=== PATIENT | male | born 1985 | race Caucasian/White ===

== ENCOUNTER 2016-06-23 11:17 | Inpatient (IN) | payer SELFPAY ==
[~2016-06-23] VITALS: Ht 185.4 cm; Wt 72.5 kg
[~2016-06-23 11:17] MED LIST: Z.0.NO CURRENT MEDS
[2016-06-23 11:19] VITALS: BP 135/93; PULSE 76; RESP 20; TEMP 97.8; O2SAT 98
[2016-06-23] MEDS ORDERED: PROPARACAINE HCL 0.5% OPHT SOLN 15 ML BTL EACH EYE ONE (11:45)
[2016-06-23] MEDS ORDERED: AZITHROMYCIN 250 MG TAB PO ONE (12:00)
[2016-06-23] MEDS ORDERED: cefTRIAXone INJ 1,000 MG in SODIUM CHLORIDE 0.9% INJ 100 ML IV ONE (12:00)
[2016-06-23] MEDS ORDERED: SODIUM CHLOR 0.9% 1000 ML INJ 1,000 ML IV ONE (12:15)
--- NOTE | 2016-06-23 12:16 | PD ---
HPI Chief Complaint: Eye Problems/Injury Time Seen by Provider: 12:16 Travel History International Travel<30 days: No Contact w/Intl Traveler<30days: No Traveled to known affect area: No History of Present Illness HPI Patient is a 30-year-old homeless male with a history of heroin IVDA presenting with left eye pain and swelling. He states has been present for 2 days. Large amounts of watery and yellow discharge. He states that he has significant photophobia and some headache and pain behind the eye. He cannot see out of the eye due to the amount of swelling and discharge and blurriness. He states he does have some itching and redness in the right eye to begin this morning. He states that for 3-4 days he has been having yellow discharge from his penis and burning when being. He denies any pain in the scrotum, perineum or rectum. Denies any penile lesions. He is only had unprotected intercourse with one female partner in the last several months. He denies fever and chills. He denies lymphadenopathy. He denies history of diabetes and immunocompromised states. PFSH Past Medical History Blood Disorders: No Endocrine: No Headaches: No Neurologic: No Psychiatric: Yes Reproductive: No Respiratory: No Seizures: No Past Surgical History Abdominal Surgery: No Cardiac Surgery: No Thoracic Surgery: No Social History Alcohol Use: No Tobacco Use: Yes (1/2PD) Substance Use: Yes Allergies-Medications (Allergen,Severity, Reaction): Coded Allergies: No Known Allergies (Verified , 11/25/12) Reported Meds & Prescriptions Reported Meds & Active Scripts Active No Active Prescriptions or Reported Medications Review of Systems Except as stated in HPI: all other systems reviewed are Neg Physical Exam Narrative GENERAL: Well-developed and well-nourished adult male in no acute distress. SKIN: "Track diallo "in the left antecubital fossa. Warm and dry. Good turgor without tenting. HEAD: Normocephalic and atraumatic. EYES: Left eye has significant erythema and chemosis of the conjunctiva with large amounts of purulent drainage. Left cornea appears unremarkable. Large amount of edema of the left upper eyelid with cellulitis present. No proptosis of the left eye. PERRL bilaterally, 4mm. EOMI bilaterally but with significant discomfort in the left eye. Right eye has only minimal conjunctival injection present without any drainage, proptosis. Lids without edema or erythema. ENT: Buccal mucosa pink and moist. Oropharynx free of erythema, tonsillar hypertrophy, masses, swelling, asymmetry and exudates. Uvula midline and airway patent. NECK: Supple, no meningeal sign. Trachea midline, no JVD. CARDIOVASCULAR: Regular rate and rhythm without murmurs, rubs, clicks or gallops. Radial and posterior tibial pulses 2+ bilaterally. No pedal edema. RESPIRATORY: Clear to auscultation bilaterally with symmetrical rise and fall, no distress or use of accessory muscles. GASTROINTESTINAL: Non-tender, non-distended. Normal bowel sounds all 4 quadrants. No masses or organomegaly present. : Urethral meatus patent. Small amount of yellow discharge from the meatus. No penile lesions or edema or pain with palpation. Scrotum is unremarkable grossly. No tenderness with palpation of the scrotum and testicles. No masses. LYMPH: Multiple small lymph nodes that are mobile and nontender posterior cervical chains bilaterally. No other cervical or facial lymphadenopathy. There is some left inguinal lymphadenopathy, largest is 2 cm they're mobile and slightly tender. MUSCULOSKELETAL: No gait disturbances. Patient freely moving all four extremities spontaneously. Extremities without clubbing, cyanosis, or edema. No obvious deformities. NEUROLOGIC: CN II-XII grossly intact. Awake and alert. Motor grossly within normal limits. Normal speech. PSYCHIATRIC: Appropriate mood and affect; insight and judgment normal. Data Data Last Documented VS Vital Signs Date Time Temp Pulse Resp B/P Pulse Ox O2 Delivery O2 Flow Rate FiO2 06/23/16 11:19 97.8 76 20 135/93 98 Room Air Orders Proparacaine 0.5% Opth Soln (Alcaine 0.5 (06/23/16 11:45) Complete Blood Count With Diff (06/23/16 12:00) Comprehensive Metabolic Panel (06/23/16 12:00) Urinalysis - C+S If Indicated (06/23/16 12:00) Gc And Chlamydia Pcr (06/23/16 12:00) Blood Culture (06/23/16 12:00) Iv Access Insert/Monitor (06/23/16 12:00) Azithromycin (Zithromax) (06/23/16 12:00) Ceftriaxone Inj (Rocephin Inj) (06/23/16 12:00) Wound Culture And Gram Stain (06/23/16 12:00) Sodium Chlor 0.9% 1000 Ml Inj (Ns 1000 M (06/23/16 12:15) Ct Brain W/O Iv Contrast(Rout) (06/23/16 ) Ct Facial Bones W Iv Contrast (06/23/16 ) Urine Culture (06/23/16 12:15) Gc And Chlamydia Pcr (06/23/16 13:02) Doxycycline (Vibramycin) (06/23/16 13:15) Iohexol 350 Inj (Omnipaque 350 Inj) (06/23/16 13:36) Admit Order (Ed Use Only) (06/23/16 14:32) Admit To Inpatient (06/23/16 ) Inpatient Certification (06/23/16 ) Diet Regular Basic (06/23/16 Dinner) Activity Oob Ad Diane (06/23/16 14:32) Vital Signs (Adult) VINCE.Q4H (06/23/16 14:32) Labs Laboratory Tests Test 06/23/16 06/23/16 06/23/16 12:15 12:20 13:20 Urine Color YELLOW Urine Turbidity CLOUDY Urine pH 5.5 Urine Specific [place] 1.028 Urine Protein 30 mg/dL Urine Glucose (UA) NEG mg/dL Urine Ketones NEG mg/dL Urine Occult Blood MOD Urine Nitrite NEG Urine Bilirubin NEG Urine Urobilinogen LESS THAN 2.0 MG/DL Urine Leukocyte Esterase LARGE Urine RBC /hpf Urine WBC /hpf Urine WBC Clumps FEW Urine Bacteria RARE /hpf Microscopic Urinalysis Comment CULTURE INDICATED Chlamydia trachomatis DNA NOT DETECTED NOT DETECTED (PCR) Neisseria gonorrhoeae DNA DETECTED DETECTED (PCR) White Blood Count 10.2 TH/MM3 Red Blood Count 4.91 MIL/MM3 Hemoglobin 14.1 GM/DL Hematocrit 42.2 % Mean Corpuscular Volume 85.9 FL Mean Corpuscular Hemoglobin 28.8 PG Mean Corpuscular Hemoglobin 33.5 % Concent Red Cell Distribution Width 13.7 % Platelet Count 247 TH/MM3 Mean Platelet Volume 7.1 FL Neutrophils (%) (Auto) 81.9 % Lymphocytes (%) (Auto) 11.0 % Monocytes (%) (Auto) 5.9 % Eosinophils (%) (Auto) 1.0 % Basophils (%) (Auto) 0.2 % Neutrophils # (Auto) 8.3 TH/MM3 Lymphocytes # (Auto) 1.1 TH/MM3 Monocytes # (Auto) 0.6 TH/MM3 Eosinophils # (Auto) 0.1 TH/MM3 Basophils # (Auto) 0.0 TH/MM3 CBC Comment DIFF FINAL Differential Comment Sodium Level 143 MEQ/L Potassium Level 4.0 MEQ/L Chloride Level 109 MEQ/L Carbon Dioxide Level 27.8 MEQ/L Anion Gap 6 MEQ/L Blood Urea Nitrogen 13 MG/DL Creatinine 0.90 MG/DL Estimat Glomerular Filtration 100 ML/MIN Rate Random Glucose 92 MG/DL Calcium Level 8.6 MG/DL Total Bilirubin 0.1 MG/DL Aspartate Amino Transf 20 U/L (AST/SGOT) Alanine Aminotransferase 33 U/L (ALT/SGPT) Alkaline Phosphatase 68 U/L Total Protein 7.1 GM/DL Albumin 3.3 GM/DL MDM Medical Decision Making Medical Screen Exam Complete: Yes Emergency Medical Condition: Yes Interpretation(s) Last [address] 06/23/16 0000 Signed Impressions: Service Date/Time: Thursday, June 23, 2016 13:15 - CONCLUSION: 1. Preseptal soft tissue swelling bilaterally, left greater than right, consistent with preseptal cellulitis. No retroconal abnormality is present. There is air on the left in the region soft tissue swelling and it is not clear this is within the soft tissues or beneath the lid. 2. Lucency around the root of the right mandibular lateral incisor indicating dental disease. Berry Saenz MD Head CT 06/23/16 0000 Signed Impressions: Service Date/Time: Thursday, June 23, 2016 13:10 - CONCLUSION: 1. No acute intracranial abnormality is identified. 2. Possible left preseptal soft tissue swelling. The left lobe demonstrates no abnormality. Berry Saenz MD Laboratory Tests Test 06/23/16 06/23/16 12:15 12:20 Urine Color YELLOW (YELLW/STRAW) Urine Turbidity CLOUDY (CLEAR) Urine pH 5.5 (5.0-8.5) Urine Specific [place] 1.028 (1.002-1.035) Urine Protein 30 mg/dL (NEG-TRACE) Urine Glucose (UA) NEG mg/dL (NEG) Urine Ketones NEG mg/dL (NEG) Urine Occult Blood MOD (NEG) Urine Nitrite NEG (NEG) Urine Bilirubin NEG (NEG) Urine Urobilinogen LESS THAN 2.0 MG/DL (LESS THAN 2.0) Urine Leukocyte Esterase LARGE (NEG) Urine RBC /hpf (0-3) Urine WBC /hpf (0-5) Urine WBC Clumps FEW (NONE) Urine Bacteria RARE /hpf (NONE) Microscopic Urinalysis Comment CULTURE INDICATED Chlamydia trachomatis DNA NOT DETECTED (PCR) (NOT DETECT) Neisseria gonorrhoeae DNA DETECTED (NOT (PCR) DETECT) White Blood Count 10.2 TH/MM3 (4.0-11.0) Red Blood Count 4.91 MIL/MM3 (4.50-5.90) Hemoglobin 14.1 GM/DL (13.0-17.0) Hematocrit 42.2 % (39.0-51.0) Mean Corpuscular Volume 85.9 FL (80.0-100.0) Mean Corpuscular Hemoglobin 28.8 PG (27.0-34.0) Mean Corpuscular Hemoglobin 33.5 % Concent (32.0-36.0) Red Cell Distribution Width 13.7 % (11.6-17.2) Platelet Count 247 TH/MM3 (150-450) Mean Platelet Volume 7.1 FL (7.0-11.0) Neutrophils (%) (Auto) 81.9 % (16.0-70.0) Lymphocytes (%) (Auto) 11.0 % (9.0-44.0) Monocytes (%) (Auto) 5.9 % (0.0-8.0) Eosinophils (%) (Auto) 1.0 % (0.0-4.0) Basophils (%) (Auto) 0.2 % (0.0-2.0) Neutrophils # (Auto) 8.3 TH/MM3 (1.8-7.7) Lymphocytes # (Auto) 1.1 TH/MM3 (1.0-4.8) Monocytes # (Auto) 0.6 TH/MM3 (0-0.9) Eosinophils # (Auto) 0.1 TH/MM3 (0-0.4) Basophils # (Auto) 0.0 TH/MM3 (0-0.2) CBC Comment DIFF FINAL Differential Comment Sodium Level 143 MEQ/L (136-145) Potassium Level 4.0 MEQ/L (3.5-5.1) Chloride Level 109 MEQ/L (98-107) Carbon Dioxide Level 27.8 MEQ/L (21.0-32.0) Anion Gap 6 MEQ/L (5-15) Blood Urea Nitrogen 13 MG/DL (7-18) Creatinine 0.90 MG/DL (0.60-1.30) Estimat Glomerular Filtration 100 ML/MIN Rate (>89) Random Glucose 92 MG/DL (74-106) Calcium Level 8.6 MG/DL (8.5-10.1) Total Bilirubin 0.1 MG/DL (0.2-1.0) Aspartate Amino Transf 20 U/L (15-37) (AST/SGOT) Alanine Aminotransferase 33 U/L (12-78) (ALT/SGPT) Alkaline Phosphatase 68 U/L (45-117) Total Protein 7.1 GM/DL (6.4-8.2) Albumin 3.3 GM/DL (3.4-5.0) Differential Diagnosis Gonococcal conjunctivitis versus chlamydia versus gonorrhea versus orbital cellulitis Narrative Course Stefanie is a 30-year-old afebrile nontoxic appearing IV drug user who is currently homeless presenting with urethritis and discharge for 3-4 days has begun having eye symptoms suggestive of gonococcal conjunctivitis. Significant amount of discharge with significant injection and chemosis. Lids are erythematous and edematous. No proptosis. The patient is having some pain behind the eye. He has some minor irritation of the conjunctiva of the right eye but no marcelino discharge. I spoke with Dr. Wilson evaluated the patient and agrees this is the most likely etiology. Concern is as patient will likely be lost to follow-up and has history of IVDA he is at risk for significant complication. Further as it bothers his right eye as well there is concern he will not be functional if he is unable to see and could have permanent vision loss. Patient was given ceftriaxone, azithromycin and doxycycline. Ordered labs, urine GNC as well as a DNA probe GNC. We also sent a wound culture of the left eye. I spoke with Dr. Cline, ophthalmology, who stated that no additional emergent treatment is warranted at this time. He agrees the patient should be admitted and he will follow-up in consult. Urine chlamydia and gonorrhea was positive for gonorrhea. The eye swab is still pending. Patient does not have a leukocytosis and his labs are otherwise unremarkable. CT scan shows preseptal soft tissue swelling bilaterally, left greater than right consistent with cellulitis. No retroconal abdomen mildly is seen. There is small amount of air in the soft tissue region and is not clear if this is between the lid and the eyeball or otherwise. Report was given to Dr. Larios who accepted the admission. Later a phone call was received from Dr. Flower requesting that the discharge be irriated with sterile eye wash every 2-[address] hours to prevent complication[address] Dr. Larios was preset and seeing the patient at that time so I relayed this to here to place the orders, which she stated she would do. Diagnosis Primary Impression: Gonococcal conjunctivitis of left eye Additional Impressions: Gonococcal urethritis Preseptal cellulitis Admitting Information Admitting Physician Requests: Admit Scripts No Active Prescriptions or Reported Meds Condition: Stable Berry Kennedy III Jun 23, 2016 12:16
[2016-06-23 12:33] LABS: AUTOMATED NEUTROPHIL # 8.3 TH/MM3 (1.8-7.7); BASOPHIL % 0.2 % (0.0-2.0); EOSINOPHIL # 0.1 TH/MM3 (0-0.4); HEMATOCRIT 42.2 % (39.0-51.0); HEMO FLAGS DIFF FINAL; LYMPHOCYTE # 1.1 TH/MM3 (1.0-4.8); MEAN CELL VOLUME 85.9 FL (80.0-100.0); MEAN CORPUSCULAR HEMOGLOBIN 28.8 PG (27.0-34.0); MEAN CORPUSCULAR HGB CONC 33.5 % (32.0-36.0); MONO % 5.9 % (0.0-8.0); NEUT % 81.9 % (16.0-70.0); PLATELET COUNT 247 TH/MM3 (150-450); RED BLOOD COUNT 4.91 MIL/MM3 (4.50-5.90); RED CELL DISTRIBUTION WIDTH 13.7 % (11.6-17.2); WHITE BLOOD COUNT 10.2 TH/MM3 (4.0-11.0)
[2016-06-23 12:41] LABS: BACTERIA, URINE RARE /hpf; BLOOD, URINE MOD (NEG); GLUCOSE,URINE NEG (NEG); KETONE, URINE NEG (NEG); NITRITE,URINE NEG (NEG); PH, URINE 5.5 (5.0-8.5); URINE COLOR YELLOW (YELLW/STRAW)
[2016-06-23 12:43] LABS: COMMENT (UR) CULTURE INDICATED; CULTURE IF INDICATED CULTURE INDICATED
[2016-06-23 12:56] LABS: ALT (GPT) 33 U/L (12-78); ANION GAP 6 MEQ/L (5-15); AST (GOT) 20 U/L (15-37); BICARBONATE 27.8 MEQ/L (21.0-32.0); BLOOD UREA NITROGEN 13 MG/DL (7-18); CHLORIDE 109 MEQ/L (98-107); GLOMERULAR FILTRATION RATE 100 ML/MIN (>89); SODIUM (NA) 143 MEQ/L (136-145)
[2016-06-23 12:58] LABS: ALKALINE PHOSPHATASE 68 U/L (45-117); TOTAL BILIRUBIN ADULT 0.1 MG/DL (0.2-1.0)
[2016-06-23] MEDS ORDERED: DOXYCYCLINE HYCLATE 100 MG CAP PO ONE (13:15)
--- NOTE | 2016-06-23 13:31 | RADRPT ---
EXAM DATE/TIME: 06/23/2016 13:10 [facility] COMPARISON: No previous studies available for comparison. INDICATIONS : Cephalgia. RADIATION DOSE: 56.35 CTDIvol (mGy) MEDICAL HISTORY : None SURGICAL HISTORY : None. ENCOUNTER: Initial ACUITY: 3 days PAIN SCALE: 10/10 LOCATION: Left eye. TECHNIQUE: Multiple contiguous axial images were obtained of the head. Using automated exposure control and adj ustment of the mA and/or kV according to patient size, radiation dose was kept as low as reasonably a chievable to obtain optimal diagnostic quality images. FINDINGS: CEREBRUM: The ventricles are normal for age. No evidence of midline shift, mass lesion, hemorrhage or acute in farction. No extra-axial fluid collections are seen. POSTERIOR FOSSA: The cerebellum and brainstem are intact. The 4th ventricle is midline. The cerebellopontine angle i s unremarkable. EXTRACRANIAL: There is possible left preseptal soft tissue swelling. Left globe demonstrates no abnormality. SKULL: The calvaria is intact. No evidence of skull fracture. CONCLUSION: 1. No acute intracranial abnormality is identified. 2. Possible left preseptal soft tissue swelling. The left lobe demonstrates no abnormality. Berry Saenz MD on June 23, 2016 at 13:28 Board Certified Radiologist. This report was verified electronically.
[2016-06-23] MEDS ORDERED: IOHEXOL 350 MG/ML 10 ML VIAL (for RAD DIAG) IV ONE (13:36)
--- NOTE | 2016-06-23 13:53 | RADRPT ---
EXAM DATE/TIME: 06/23/2016 13:15 [facility] COMPARISON: No previous studies available for comparison. INDICATIONS : Left eye swelling and pain. IV CONTRAST: 100 cc Omnipaque 350 (iohexol) IV RADIATION DOSE: 36.62 CTDIvol (mGy) MEDICAL HISTORY : None SURGICAL HISTORY : None. ENCOUNTER: Initial ACUITY: 3 days PAIN SCALE: 10/10 LOCATION: Left eye. TECHNIQUE: Volumetric scanning of the facial bones was performed. Using automated exposure control and adjustme nt of the mA and/or kV according to patient size, radiation dose was kept as low as reasonably achiev able to obtain optimal diagnostic quality images. FINDINGS: There is preseptal soft tissue thickening and mild subcutaneous edema bilaterally, left greater than right. There is air in the area soft tissue swelling in the left that may be beneath the lid or withi n the soft tissues. The globes have a normal appearance and lenses are normally located. Extraocular muscles and retroconal structures demonstrate no abnormality. The paranasal sinuses and mastoid air c ells are clear. Visualized intracranial structures demonstrate no acute finding. There is lucency josue und the root of the right lateral incisor and the mandible. CONCLUSION: 1. Preseptal soft tissue swelling bilaterally, left greater than right, consistent with preseptal mahin lulitis. No retroconal abnormality is present. There is air on the left in the region soft tissue swe lling and it is not clear this is within the soft tissues or beneath the lid. 2. Lucency around the root of the right mandibular lateral incisor indicating dental disease. Berry Saenz MD on June 23, 2016 at 13:47 Board Certified Radiologist. This report was verified electronically.
[2016-06-23 14:53] VITALS: BP 128/86; PULSE 80; RESP 15; O2SAT 98
[2016-06-23 15:19] LABS: CHLAMYDIA PCR NOT DETECTED (NOT DETECT); NEISSERIA PCR DETECTED (NOT DETECT)
[2016-06-23 17:07] LABS: CHLAMYDIA PCR NOT DETECTED (NOT DETECT); NEISSERIA PCR DETECTED (NOT DETECT)
--- NOTE | 2016-06-23 18:51 | HHI.HP ---
[facility] Primary Care Physician No Primary Care Physician Admission Diagnosis GONOCCOCAL CONJUNCTIVITIS, PRESEPTAL CELLULITIS Diagnoses: Chief Complaint: Left periorbital pain and swelling Travel History International Travel<30 Days: No Contact w/Intl Traveler <30 Da: No Traveled to Known Affected Are: No History of Present Illness Patient is a 30-year-old male who woke up 3 days ago with left periorbital swelling rapidly progressive with the ring draining yellowish purulent discharge. Patient denies any fever or chills. He denies any headache. He does complain of burning urination with discharge from the penis/urethral for the past 3 days 2. Woke up this morning with increasing eye pain and swelling which prompted consult to ER and admitted for further evaluation. Denies any joint pains Patient is sexually active uses unprotected sex. States he was tested for HIV 8 months ago and was reportedly negative. Patient denies any history of previous sexually transmitted diseases. He admits to history of IV drug use with powder Dilaudid. Last use was 2 days ago injected on the left Review of Systems Constitutional: DENIES: Diaphoretic episodes, Fatigue, Fever, Weight gain, Weight loss, Chills, Dizziness, Change in appetite, Night Sweats Endocrine: DENIES: Heat/cold intolerance, Polydipsia, Polyuria, Polyphagia Eyes: DENIES: Blurred vision, Diplopia, Eye inflammation, Eye pain, Vision loss , Photosensitivity, Double Vision Ears, nose, mouth, throat: DENIES: Tinnitus, Hearing loss, Vertigo, Nasal discharge, Oral lesions, Throat pain, Hoarseness, Ear Pain, Running Nose, Epistaxis, Sinus Pain, Toothache, Odynophagia Respiratory: DENIES: Apneas, Cough, Snoring, Wheezing, Hemoptysis, Sputum production, Shortness of breath Cardiovascular: DENIES: Chest pain, Palpitations, Syncope, Dyspnea on Exertion , PND, Lower Extremity Edema, Orthopnea, Claudication Gastrointestinal: DENIES: Abdominal pain, Black stools, Bloody stools, Constipation, Diarrhea, Nausea, Vomiting, Difficulty Swallowing, Anorexia Genitourinary: COMPLAINS OF: Penile Discharge, DENIES: Sexual dysfunction, Urinary frequency, Urinary incontinence, Urgency, Hematuria, Dysuria, Nocturia, Testicular Pain, Testicular Swelling Hematologic/lymphatic: DENIES: Bruising, Lymphadenopathy Immunologic/allergic: DENIES: Eczema, Urticaria Neurologic: DENIES: Abnormal gait, Headache, Localized weakness, Paresthesias, Seizures, Speech Problems, Tremor, Poor Balance Psychiatric: DENIES: Anxiety, Confusion, Mood changes, Depression, Hallucinations, Agitation, Suicidal Ideation, Homicidal Ideation, Delusions Past Family Social History Past Medical History No chronic medical conditions Past Surgical History Left IV Lasix surgery in 2005 Reported Medications None Allergies: Coded Allergies: No Known Allergies (Verified , 11/25/12) Family History Unknown Social History Smokes 1 pack per day Very rare occasional alcohol use History of IV drug use using powdered Dilaudid injected to the left antecubital area last used 2 days ago Physical Exam Vital Signs Vital Signs Date Time Temp Pulse Resp B/P Pulse Ox O2 Delivery O2 Flow Rate FiO2 06/23/16 14:53 80 15 128/86 98 Room Air 06/23/16 11:19 97.8 76 20 135/93 98 Room Air Physical Exam GENERAL: Awake alert oriented 3 SKIN: Middle diallo left antecubital area dry no swelling HEAD: Atraumatic. EYES: OS: Marked left periorbital swelling unable to open eye draining pus. OD- some periorbital swelling, matted lashes, injected conjunctivae ENT: Nose without bleeding, p Airway patent. NECK: Trachea midline. No JVD or lymphadenopathy. Supple, nontender, no meningeal signs. CARDIOVASCULAR: Regular rate and rhythm without murmurs, gallops, or rubs. RESPIRATORY: Clear to auscultation. Breath sounds equal bilaterally. No wheezes , rales, or rhonchi. GASTROINTESTINAL: Abdomen soft, non-tender, nondistended. No hepato-splenomegaly , or palpable masses. No guarding. External genitalia. Circumcised penis, urethra with yellowish purulent discharge MUSCULOSKELETAL: Extremities without clubbing, cyanosis, or edema. No joint tenderness, effusion, or edema noted. No calf tenderness. Negative Homans sign bilaterally No joint swelling NEUROLOGICAL: Awake and alert. No nuchal rigidity Unable to test for extraocular muscle with marked swelling. No facial asymmetry tongue midline moves all extremities equally Laboratory Laboratory Tests Test 06/23/16 06/23/16 06/23/16 12:15 12:20 13:20 Urine Color YELLOW Urine Turbidity CLOUDY Urine pH 5.5 Urine Specific [place] 1.028 Urine Protein 30 Urine Glucose (UA) NEG Urine Ketones NEG Urine Occult Blood MOD Urine Nitrite NEG Urine Bilirubin NEG Urine Urobilinogen LESS THAN 2.0 Urine Leukocyte Esterase LARGE Urine RBC Urine WBC Urine WBC Clumps FEW Urine Bacteria RARE Microscopic Urinalysis Comment CULTURE INDICATED Chlamydia trachomatis DNA NOT DETECTED NOT DETECTED (PCR) Neisseria gonorrhoeae DNA DETECTED DETECTED (PCR) White Blood Count 10.2 Red Blood Count 4.91 Hemoglobin 14.1 Hematocrit 42.2 Mean Corpuscular Volume 85.9 Mean Corpuscular Hemoglobin 28.8 Mean Corpuscular Hemoglobin 33.5 Concent Red Cell Distribution Width 13.7 Platelet Count 247 Mean Platelet Volume 7.1 Neutrophils (%) (Auto) 81.9 Lymphocytes (%) (Auto) 11.0 Monocytes (%) (Auto) 5.9 Eosinophils (%) (Auto) 1.0 Basophils (%) (Auto) 0.2 Neutrophils # (Auto) 8.3 Lymphocytes # (Auto) 1.1 Monocytes # (Auto) 0.6 Eosinophils # (Auto) 0.1 Basophils # (Auto) 0.0 CBC Comment DIFF FINAL Differential Comment Sodium Level 143 Potassium Level 4.0 Chloride Level 109 Carbon Dioxide Level 27.8 Anion Gap 6 Blood Urea Nitrogen 13 Creatinine 0.90 Estimat Glomerular Filtration 100 Rate Random Glucose 92 Calcium Level 8.6 Total Bilirubin 0.1 Aspartate Amino Transf 20 (AST/SGOT) Alanine Aminotransferase 33 (ALT/SGPT) Alkaline Phosphatase 68 Total Protein 7.1 Albumin 3.3 Date/Time Procedure Status Source Growth 06/23/16 12:20 Aerobic Blood Culture Received Blood Peripheral Pending 06/23/16 12:20 Anaerobic Blood Culture Received Blood Peripheral Pending 06/23/16 12:15 Urine Culture Received Urine Clean Catch Pending 06/23/16 12:15 Gram Stain Received Wound Other Pending 06/23/16 12:15 Wound Culture Received Wound Other Pending Result Diagram: 06/23/16 1220 06/23/16 1220 Imaging Last Impressions Maxillofacial CT 06/23/16 0000 Signed Impressions: Service Date/Time: Thursday, June 23, 2016 13:15 - CONCLUSION: 1. Preseptal soft tissue swelling bilaterally, left greater than right, consistent with preseptal cellulitis. No retroconal abnormality is present. There is air on the left in the region soft tissue swelling and it is not clear this is within the soft tissues or beneath the lid. 2. Lucency around the root of the right mandibular lateral incisor indicating dental disease. Berry Saenz MD Head CT 06/23/16 0000 Signed Impressions: Service Date/Time: Thursday, June 23, 2016 13:10 - CONCLUSION: 1. No acute intracranial abnormality is identified. 2. Possible left preseptal soft tissue swelling. The left lobe demonstrates no abnormality. Berry Saenz MD Assessment and Plan Assessment and Plan 30-year-old male with Disseminated Gonococcal infection Gonococcal conjunctivitis with left periorbital cellulitis Gonococcal urethritis received ceftriaxone 1 g IV and zithromax 1 gm dose here in ER continue Ceftriaxone for cellulitis Ophthalmology consulted for further evaluation and management.- Will get ID service involved When necessary pain meds Eye lavage with proparacaine topical eye 2 drops every 3-4 hours.per ophthalmology ecommendations Bilateral bacterial conjuctivitis OS worse than OD History of IV drug abuse/polysubstance abuse Lortab prn for pain Discussed Condition With Patient Physician Certification 2 Midnight Certification Type: Admission for Inpatient Services Order for Inpatient Services The services are ordered in accordance with Medicare regulations or non- Medicare payer requirements, as applicable. In the case of services not specified as inpatient-only, they are appropriately provided as inpatient services in accordance with the 2-midnight benchmark. Estimated LOS (days): 3 days is the estimated time the patient will need to remain in the hospital, assuming treatment plan goals are met and no additional complications. Post-Hospital Plan: Not yet determined Antoinette Larios MD Jun 23, 2016 18:51
[2016-06-23 19:15] VITALS: BP 136/72; PULSE 80; RESP 16; TEMP 98.9; O2SAT 97
[2016-06-23 21:32] VITALS: BP 131/76; TEMP 98.9
[2016-06-23 22:16] VITALS: BP 142/81; PULSE 70; RESP 18; TEMP 98.5; O2SAT 98
--- NOTE | 2016-06-23 22:53 | PD ---
Data Data Last Documented VS Vital Signs Date Time Temp Pulse Resp B/P Pulse Ox O2 Delivery O2 Flow Rate FiO2 06/23/16 11:19 97.8 76 20 135/93 98 Room Air Orders Proparacaine 0.5% Opth Soln (Alcaine 0.5 (06/23/16 11:45) Complete Blood Count With Diff (06/23/16 12:00) Comprehensive Metabolic Panel (06/23/16 12:00) Urinalysis - C+S If Indicated (06/23/16 12:00) Gc And Chlamydia Pcr (06/23/16 12:00) Blood Culture (06/23/16 12:00) Iv Access Insert/Monitor (06/23/16 12:00) Azithromycin (Zithromax) (06/23/16 12:00) Ceftriaxone Inj (Rocephin Inj) (06/23/16 12:00) Wound Culture And Gram Stain (06/23/16 12:00) Sodium Chlor 0.9% 1000 Ml Inj (Ns 1000 M (06/23/16 12:15) Ct Brain W/O Iv Contrast(Rout) (06/23/16 ) Ct Facial Bones W Iv Contrast (06/23/16 ) Urine Culture (06/23/16 12:15) Gc And Chlamydia Pcr (06/23/16 13:02) Doxycycline (Vibramycin) (06/23/16 13:15) Iohexol 350 Inj (Omnipaque 350 Inj) (06/23/16 13:36) Admit Order (Ed Use Only) (06/23/16 14:32) Admit To Inpatient (06/23/16 ) Inpatient Certification (06/23/16 ) Diet Regular Basic (06/23/16 Dinner) Activity Oob Ad Diane (06/23/16 14:32) Vital Signs (Adult) VINCE.Q4H (06/23/16 14:32) Labs Laboratory Tests Test 06/23/16 06/23/16 06/23/16 12:15 12:20 13:20 Urine Color YELLOW Urine Turbidity CLOUDY Urine pH 5.5 Urine Specific [place] 1.028 Urine Protein 30 mg/dL Urine Glucose (UA) NEG mg/dL Urine Ketones NEG mg/dL Urine Occult Blood MOD Urine Nitrite NEG Urine Bilirubin NEG Urine Urobilinogen LESS THAN 2.0 MG/DL Urine Leukocyte Esterase LARGE Urine RBC /hpf Urine WBC /hpf Urine WBC Clumps FEW Urine Bacteria RARE /hpf Microscopic Urinalysis Comment CULTURE INDICATED Chlamydia trachomatis DNA NOT DETECTED NOT DETECTED (PCR) Neisseria gonorrhoeae DNA DETECTED DETECTED (PCR) White Blood Count 10.2 TH/MM3 Red Blood Count 4.91 MIL/MM3 Hemoglobin 14.1 GM/DL Hematocrit 42.2 % Mean Corpuscular Volume 85.9 FL Mean Corpuscular Hemoglobin 28.8 PG Mean Corpuscular Hemoglobin 33.5 % Concent Red Cell Distribution Width 13.7 % Platelet Count 247 TH/MM3 Mean Platelet Volume 7.1 FL Neutrophils (%) (Auto) 81.9 % Lymphocytes (%) (Auto) 11.0 % Monocytes (%) (Auto) 5.9 % Eosinophils (%) (Auto) 1.0 % Basophils (%) (Auto) 0.2 % Neutrophils # (Auto) 8.3 TH/MM3 Lymphocytes # (Auto) 1.1 TH/MM3 Monocytes # (Auto) 0.6 TH/MM3 Eosinophils # (Auto) 0.1 TH/MM3 Basophils # (Auto) 0.0 TH/MM3 CBC Comment DIFF FINAL Differential Comment Sodium Level 143 MEQ/L Potassium Level 4.0 MEQ/L Chloride Level 109 MEQ/L Carbon Dioxide Level 27.8 MEQ/L Anion Gap 6 MEQ/L Blood Urea Nitrogen 13 MG/DL Creatinine 0.90 MG/DL Estimat Glomerular Filtration 100 ML/MIN Rate Random Glucose 92 MG/DL Calcium Level 8.6 MG/DL Total Bilirubin 0.1 MG/DL Aspartate Amino Transf 20 U/L (AST/SGOT) Alanine Aminotransferase 33 U/L (ALT/SGPT) Alkaline Phosphatase 68 U/L Total Protein 7.1 GM/DL Albumin 3.3 GM/DL MDM Supervised Visit with FRANCK: Yes Narrative Course Patient seen and examined by me in addition to Berry SALDAÑA. Agree s/s are highly suggestive of gonoccocal conjunctivitis. Labs sent will be admitted. Diagnosis Primary Impression: Gonococcal conjunctivitis of left eye Additional Impressions: Gonococcal urethritis Preseptal cellulitis Scripts No Active Prescriptions or Reported Meds Condition: Stable Be Wilson MD Jun 23, 2016 22:53
[2016-06-23 23:00] VITALS: BP 149/88; PULSE 55; RESP 15; TEMP 97.3; O2SAT 99
[2016-06-24] VITALS: BP 149/88; PULSE 55; RESP 15; TEMP 97.3; O2SAT 99
[2016-06-24] MEDS: PROPARACAINE HCL 0.5% OPHT SOLN 15 ML BTL LEFT EYE PRN ×2 (03:48→22:00)
[2016-06-24 04:00] VITALS: BP 143/82; PULSE 58; RESP 16; TEMP 96.7; O2SAT 98
[2016-06-24 08:00] VITALS: BP 146/94; PULSE 53; RESP 16; TEMP 98; O2SAT 100
[2016-06-24 12:00] VITALS: BP 144/94; PULSE 48; RESP 14; TEMP 98.4; O2SAT 100
[2016-06-24] MEDS: cefTRIAXone INJ 1,000 MG in SODIUM CHLORIDE 0.9% INJ 100 ML IV SCH (12:31)
--- NOTE | 2016-06-24 12:51 | HHI.PR ---
Subjective Remarks marked improvement in pain and swelling of the left urinary symptoms resolved Objective Vitals Vital Signs Date Time Temp Pulse Resp B/P Pulse Ox O2 Delivery O2 Flow Rate FiO2 06/24/16 12:00 98.4 48 14 144/94 100 06/24/16 08:00 98.0 53 16 146/94 100 06/24/16 04:00 96.7 58 16 143/82 98 06/24/16 00:00 97.3 55 15 149/88 99 06/23/16 23:00 97.3 55 15 149/88 99 06/23/16 22:16 98.5 70 18 142/81 98 06/23/16 21:32 98.9 82 16 131/76 99 06/23/16 19:15 98.9 80 16 136/72 97 Room Air 06/23/16 14:53 80 15 128/86 98 Room Air I/O 06/23/16 06/23/16 06/23/16 06/24/16 06/24/16 06/24/16 07:00 15:00 23:00 07:00 15:00 23:00 Intake Total 240 ml 480 ml 240 ml Balance 240 ml 480 ml 240 ml Intake Oral 240 ml 480 ml 240 ml # Voids 1 2 # Bowel Movements 0 Result Diagram: 06/23/16 1220 06/23/16 1220 Imaging Last Impressions Maxillofacial CT 06/23/16 0000 Signed Impressions: Service Date/Time: Thursday, June 23, 2016 13:15 - CONCLUSION: 1. Preseptal soft tissue swelling bilaterally, left greater than right, consistent with preseptal cellulitis. No retroconal abnormality is present. There is air on the left in the region soft tissue swelling and it is not clear this is within the soft tissues or beneath the lid. 2. Lucency around the root of the right mandibular lateral incisor indicating dental disease. Berry Saenz MD Head CT 06/23/16 0000 Signed Impressions: Service Date/Time: Thursday, June 23, 2016 13:10 - CONCLUSION: 1. No acute intracranial abnormality is identified. 2. Possible left preseptal soft tissue swelling. The left lobe demonstrates no abnormality. Berry Saenz MD Objective Remarks awake and alert, oriented x 3 marked decrease in swelling of the left periorbital area pupils equally reactive injected conjunctivae 0U improved lungs cl;ear regular rhythm abdomen soft, nontender no urethral discharge extremities no edema, no join swelling A/P Assessment and Plan 30-year-old male with Disseminated Gonococcal infection Gonococcal conjunctivitis with left periorbital cellulitis Gonococcal urethritis received ceftriaxone 1 g IV and zithromax 1 gm dose in ER continue Ceftriaxone for cellulitis When necessary pain meds Eye lavage with proparacaine topical eye 2 drops every 3-4 hours.per ophthalmology ecommendations Bilateral bacterial conjuctivitis OS worse than OD- improved with lavage History of IV drug abuse/polysubstance abuse Lortab prn for pain Antoinette Larios MD Jun 24, 2016 12:51
[2016-06-24 16:00] VITALS: BP 142/90; PULSE 50; RESP 16; TEMP 98.6; O2SAT 100
--- NOTE | 2016-06-24 17:46 | MB ---
cc: REGINA BELTRÁN MD DATE OF CONSULTATION: 06/24/2016. REASON FOR CONSULTATION: HISTORY OF PRESENT ILLNESS: The patient is a 30-year-old man who presented to the emergency department yesterday with a three day history of periorbital swelling and conjunctival discharge with pain, both left greater than right. The patient also had burning on urination and some urethral discharge. PCR was positive for Neisseria gonorrhea. The patient received a gram of ceftriaxone as well as a gram azithromycin. At the bedside today, the pain, discharge and periorbital edema are markedly improved per the patient. He has been getting some ocular lavage since admission. PHYSICAL EXAMINATION: The physical examination is limited to the eyes and ocular adnexa. There is no appreciable lid edema on the right and 1+ lid edema on the left. Mild conjunctival injection with minimal discharge on the right and more marked conjunctival injection but no chemosis or appreciable discharge on the left. The corneas are both clear. No infiltrates were appreciated. IMPRESSION: Bilateral GC conjunctivitis improving already with appropriate antibiotics and ocular lavage. PLAN: Recommend continue ocular lavage through the hospital stay until discharge. No follow up is typically necessary. MD ALDO Gomez/ARMOND /12:54 PM /5:40 PM
[2016-06-24 20:00] VITALS: BP 134/76; PULSE 54; RESP 17; TEMP 99.2; O2SAT 97
[2016-06-25] VITALS: BP 121/70; PULSE 55; RESP 18; TEMP 96.9; O2SAT 96
[2016-06-25] MEDS: PROPARACAINE HCL 0.5% OPHT SOLN 15 ML BTL LEFT EYE PRN (01:17)
[2016-06-25 04:00] VITALS: BP 111/72; PULSE 55; RESP 18; TEMP 97.8; O2SAT 97
[2016-06-25 07:30] VITALS: BP 139/97; PULSE 67; RESP 20; TEMP 97.5; O2SAT 99
--- NOTE | 2016-06-25 09:05 | HHI.PR ---
Subjective Remarks feeling much much better voiding with no pain, no urethral discharge eye swelling improved no joint pains Objective Vitals Vital Signs Date Time Temp Pulse Resp B/P Pulse Ox O2 Delivery O2 Flow Rate FiO2 06/25/16 04:00 97.8 55 18 111/72 97 06/25/16 00:00 96.9 55 18 121/70 96 06/24/16 20:00 99.2 54 17 134/76 97 06/24/16 16:00 98.6 50 16 142/90 100 06/24/16 12:00 98.4 48 14 144/94 100 I/O 06/24/16 06/24/16 06/24/16 06/25/16 06/25/16 06/25/16 07:00 15:00 23:00 07:00 15:00 23:00 Intake Total 480 ml 720 ml 480 ml 480 ml Balance 480 ml 720 ml 480 ml 480 ml Intake Oral 480 ml 720 ml 480 ml 480 ml # Voids 2 3 4 6 # Bowel Movements 0 0 0 0 Result Diagram: 06/23/16 1220 06/23/16 1220 Imaging Last Impressions Maxillofacial CT 06/23/16 0000 Signed Impressions: Service Date/Time: Thursday, June 23, 2016 13:15 - CONCLUSION: 1. Preseptal soft tissue swelling bilaterally, left greater than right, consistent with preseptal cellulitis. No retroconal abnormality is present. There is air on the left in the region soft tissue swelling and it is not clear this is within the soft tissues or beneath the lid. 2. Lucency around the root of the right mandibular lateral incisor indicating dental disease. Berry Saenz MD Head CT 06/23/16 0000 Signed Impressions: Service Date/Time: Thursday, June 23, 2016 13:10 - CONCLUSION: 1. No acute intracranial abnormality is identified. 2. Possible left preseptal soft tissue swelling. The left lobe demonstrates no abnormality. Berry Saenz MD Objective Remarks awake and alert, oriented x 3 swelling of periorbital area- al most resolved pupils equally reactive injected conjunctivae 0U - much improved lungs cl;ear regular rhythm abdomen soft, nontender no urethral discharge extremities no edema, no joint swelling A/P Assessment and Plan 30-year-old male with Disseminated Gonococcal infection Gonococcal conjunctivitis with left periorbital cellulitis Gonococcal urethritis received ceftriaxone 1 g IV and zithromax 1 gm dose in ER continue Ceftriaxone for cellulitis When necessary pain meds Eye lavage with proparacaine topical eye 2 drops every 3-4 hours.per ophthalmology ecommendations Bilateral bacterial conjuctivitis OS worse than OD- improved with lavage History of IV drug abuse/polysubstance abuse Lortab prn for pain DC home today DC meds- Doxycycline 100 mg po bid x 7 days eye flushes as instructed activity as tolerated ADvise on safe sex ADvise to ff up with a PCP Antoinette Larios MD Jun 25, 2016 09:05
[2016-06-25 11:00] VITALS: BP 130/89; PULSE 82; RESP 20; TEMP 96.7; O2SAT 98
[2016-06-25] MEDS: cefTRIAXone INJ 1,000 MG in SODIUM CHLORIDE 0.9% INJ 100 ML IV SCH (11:30)
[2016-06-25] MEDS ORDERED: DOXY100C PO (12:05)
== END 2016-06-25 13:44 | disposition home or self-care (01) | DRG 125 ==
LOC: NEPB 11:17 → NEDA 14:34 → HOCA 21:57
PROVIDERS: ADMIT Internal Medicine; ATTEND Internal Medicine
DX: A54.31 Gonococcal conjunctivitis (principal); F11.10 Opioid abuse, uncomplicated; L03.213 Periorbital cellulitis; A54.01 Gonococcal cystitis and urethritis, unspecified; F17.210 Nicotine dependence, cigarettes, uncomplicated
CPT/HCPCS: 70450; 70487; 80053; 81001; 85025; 86403; 87040; 87070; 87077; 87086; 87185; 87205; 87491; 87591; 96365; J0696; J7030; Q9967